=== PATIENT | female | born 2005 | race Two or more races ===

== ENCOUNTER 2025-05-24 01:28 | Emergency (ER) | payer OTHER ==
[~2025-05-24] VITALS: Ht 152.4 cm; Wt 55.5 kg
[2025-05-24 01:30] VITALS: BP 115/76; PULSE 67; RESP 16; TEMP 98.1; O2SAT 100
[2025-05-24 02:23] LABS: Hematocrit 40.3 % (36.0-46.0); Hemoglobin 13.5 g/dL (12.2-16.2); Mean Corpuscular Hemoglobin 30.5 pg (28.0-32.0); Mean Corpuscular Volume 91.0 fL (80.0-100.0); Nucleated Red Blood Cells % 0.1 %
[2025-05-24 02:30] LABS: Chloride 103 mmol/L (98-107); Potassium 4.2 mmol/L (3.5-5.1); Sodium 138 mmol/L (136-145)
[2025-05-24 02:31] LABS: Anion Gap 9 (5-15); Carbon Dioxide 26 mmol/L (20-31)
[2025-05-24 02:32] LABS: Calcium 9.8 mg/dL (8.7-10.4)
[2025-05-24 02:36] LABS: BUN/Creatinine Ratio 12.9 (10.0-20.0); Blood Urea Nitrogen 9 mg/dL (9-23)
[2025-05-24 02:37] LABS: Glucose 112 mg/dL (74-106)
[2025-05-24 02:38] LABS: Urine Protein, UAD TRACE (Negative)
--- NOTE | 2025-05-24 03:11 | ED.PDOC ---
History of Present Illness HPI Comments 20-year-old female who presents to the emergency department with epigastric, cramping abdominal pain that started at 5:00 p.m.. Pain radiates to the mid back. She has associated chills, shortness of breath, nausea, vomiting. She denies fever, URI symptoms, chest pain, blood in the stool or vomit, diarrhea or constipation, UTI symptoms, vaginal symptoms. Patient reports she is . Last menstrual period was 04/20/2025. She took a home test yesterday which was positive. Patient is G-tube P 1. No complications in previous pregnancies. She is currently only taking vitamins. She denies any significant past medical history, surgical history or allergic reactions to medications. 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 Review of systems: As stated in HPI PHYSICAL EXAM: General: Awake, alert and oriented. No acute distress. Skin: Skin in warm, dry and intact. Appropriate color for ethnicity. HEENT: The head is normocephalic and atraumatic. Conjunctivae are clear without exudates or hemorrhage. Sclera is non-icteric. Eyelids are normal in appearance without swelling or lesions. Oral mucosa is pink and moist Neck: The neck is supple with normal range of motion. No JVD. Cardiac: Heart rate and rhythm are normal. No murmurs, gallops, or rubs are auscultated. Respiratory: No signs of respiratory distress. Lung sounds are clear in all lobes bilaterally without rales, rhonchi, or wheezes. Abdominal: Abdomen is soft, + epigastric tenderness with mild distention. No guarding or rigidity. Bowel sounds are present and normoactive in all four quadrants. No CVA tenderness. Extremities: Upper and lower extremities are atraumatic in appearance without deformity or edema. Neurological: The patient is awake, alert and oriented to person, place, and time with normal speech. Speech is clear. There is no facial asymmetry. Normal gait. Psychiatric: Appropriate mood and affect. Good judgement and insight. Chief Complaint: Abdominal Pain Time Seen by MD: 01:40 Allergies: Coded Allergies: NO KNOWN ALLERGIES (Unverified , 05/24/25) Mode of Arrival: Ambulatory Constitutional: reports: others EENTM: reports: others Respiratory: reports: others Cardiovascular: reports: others Gastrointestinal: reports: others Genitourinary: reports: others Neurological: reports: others Integumetry: reports: others Allergic/Immunocompromised: reports: others Hematologic/Lymphatic: reports: others Endocrine: reports: others Psychiatric: reports: others Unable to Obtain due to: Other Physical Exam General Appearance: Other HEENT: Other Neck: Other Respiratory: Other Cardiovascular: Other Breast Exam: Other Gastrointestinal: Other Genitalia: Other Pelvic: Other Rectal: Deferred Extremities: Other Neurologic: Other Cerebellar Function: Other Reflexes: Other Skin: Other Lymphatic: Other Was a procedure done? Was a procedure done?: No Differential Dx Considerations may include: Differential diagnoses considered include: Abdominal aortic aneurysm, ID, esophageal rupture, intestinal obstruction, mesenteric ischemia, perforated viscus or solid organ rupture, CHF with hepatomegaly, pneumonia, abscess, a ppendicitis, biliary disease, diverticulitis, gastritis, gastroenteritis, hepatitis, hernia, inflammatory bowel disease, pancreatitis, peptic ulcer disease, urinary tract infection, ureteral colic, constipation, GERD, irritable syndrome, abdominal wall pain, nonspecific abdominal pain, herpes zoster, nephrolithiasis. Also ruptured ectopic , ovarian torsion/cyst, tubo-ovarian abscess, PID, endometriosis, mittleschmerz. X-Ray, Labs, Meds, VS Vital Signs Date Time Temp Pulse Resp B/P (MAP) Pulse Ox O2 Delivery O2 Flow Rate FiO2 05/24/25 01:30 98.1 67 16 115/76 100 98.1 Lab Test 05/24/25 02:21 05/24/25 02:11 05/24/25 02:00 Range/Units Total Bilirubin 0.5 0.2-1.0 mg/dL Aspartate Amino Transferase (AST) 19 13-40 U/L Alanine Aminotransferase (ALT) 19 7-40 U/L Alkaline Phosphatase 81 46-116 U/L Lipase 36 12-53 U/L Beta HCG, Quantitative 2889.5 H 1.5-4.2 mIU/mL White Blood Count 8.3 4.4-10.8 10^3/uL Red Blood Count 4.43 4.0-5.20 10^6/uL Hemoglobin 13.5 12.2-16.2 g/dL Hematocrit 40.3 36.0-46.0 % Mean Corpuscular Volume 91.0 80.0-100.0 fL Mean Corpuscular Hemoglobin 30.5 28.0-32.0 pg Mean Corpuscular Hemoglobin Concent 33.5 32.0-36.0 g/dL Red Cell Distribution Width 13.7 11.8-14.3 % Platelet Count 283 140-450 10^3/uL Mean Platelet Volume 9.0 6.9-10.8 fL Neutrophils (%) (Auto) 73.9 37.0-80.0 % Lymphocytes (%) (Auto) 18.4 10.0-50.0 % Monocytes (%) (Auto) 6.3 0.0-12.0 % Eosinophils (%) (Auto) 1.0 0.0-7.0 % Basophils (%) (Auto) 0.4 0.0-2.0 % Neutrophils # (Auto) 6.2 1.6-8.6 10 ^3/uL Lymphocytes # (Auto) 1.5 0.4-5.4 10 ^3/uL Monocytes # (Auto) 0.5 0-1.3 10 ^3/uL Eosinophils # (Auto) 0.1 0-0.8 10 ^3/uL Basophils # (Auto) 0 0-0.2 10 ^3/uL Nucleated Red Blood Cells 0.1 % Sodium Level 138 136-145 mmol/L Potassium Level 4.2 3.5-5.1 mmol/L Chloride Level 103 98-107 mmol/L Carbon Dioxide Level 26 20-31 mmol/L Anion Gap 9 5-15 Blood Urea Nitrogen 9 9-23 mg/dL Creatinine 0.70 0.550-1.02 mg/dL Glomerular Filtration Rate Calc 125 >90 mL/min BUN/Creatinine Ratio 12.9 10.0-20.0 Serum Glucose 112 H 74-106 mg/dL Calcium Level 9.8 8.7-10.4 mg/dL Urine Color Yellow Yellow Urine Clarity Turbid H Clear Urine pH 6.5 5.0-9.0 Urine Specific [place] 1.036 H 1.001-1.035 Urine Protein Trace H Negative Urine Ketones Trace Negative Urine Blood Negative Negative /uL Urine Nitrite Negative Negative Urine Bilirubin Negative Negative Urine Urobilinogen Normal Negative mg/dL Urine Leukocyte Esterase 2+ Negative /uL Urine RBC 6 0 - 4 /hpf Urine Microscopic WBC 6 H 0-5 /HPF Urine Squamous Epithelial Cells Mod <5 /hpf Urine Bacteria None seen None Seen /hpf Urine Mucus Few None Seen Urine Glucose Normal Normal mg/dL Urine Test Positive Negative Current Medications Medications (Trade) Dose Ordered Sig/Jessica Route Start Time Stop Time Status Last Admin Acetaminophen (Tylenol Tablet Or Capsule) 1,000 mg ONCE ONCE PO 05/24/25 03:15 05/24/25 03:16 DC 05/24/25 03:29 Ondansetron HCl (Zofran Po) 4 mg ONCE ONCE PO 05/24/25 03:15 05/24/25 03:16 DC 05/24/25 03:29 Time of 1ST Reevaluation: 22:09 Reevaluation 1ST: Unchanged Patient Education/Counseling: Need For Follow Up Family Education/Counseling: No Family Present SEPSIS Sepsis Screen Date sepsis recognized/suspect: May 24, 2025 Time Sepsis recognized/suspect: 013 Recent Procedure: No On Antibiotic Therapy: No Respiratory Rate >20: No Heart Rate >90: No Temp<36 C (96.8 F) or >38.3 C: No SBP <90 or MAP <65 mmHG: No New Acute Mental Status Change: No Is the patient on CPAP, BIPAP,: No Physician Orders Ob Ultrasound Comp Less 14wks (05/24/25 02:05) Abdomen Limited (05/24/25 02:05) Ob Trans Vaginal Us (05/24/25 02:44) Vital Signs Date Time Temp Pulse Resp B/P (MAP) Pulse Ox O2 Delivery O2 Flow Rate FiO2 05/24/25 01:30 98.1 67 16 115/76 100 98.1 Laboratory Tests Test 05/24/25 02:11 White Blood Count 8.3 10^3/uL (4.4-10.8) Departure 1 Departure Time of Disposition: 05:51 Impression: Primary Impression: Eloped from emergency department Disposition: 07 LEFT AWOL/ELOPED Condition: Other Comments Patient eloped from the emergency department prior to discussing test results and follow up plan. Critical Care Note Critical Care Time?: No Stability Stability form required: No Heart Score Heart Score: Heart Score Response (Comments) Value History N/A 0 EKG N/A 0 Age N/A 0 Risk Factors N/A 0 Troponin N/A 0 Total 0 LION CARTER MD May 24, 2025 03:11
[2025-05-24] MEDS: ONDANSETRON ODT 4 MG TAB PO ONE (03:29)
[2025-05-24] MEDS: ACETAMINOPHEN 500 MG TAB or CAP PO ONE (03:29)
--- NOTE | 2025-05-24 03:38 | DVH ---
INDICATION: RUQ/EPIGASTRIC PAIN TECHNIQUE: Multiple real-time sonographic images were obtained of the right upper quadrant. COMPARISON: None FINDINGS: Hepatic echogenicity is normal. The liver measures 17 cm. The common duct measures 4 mm. The gallbladder is without evidence of stone or sludge. Wall thickness measures 2.7 mm. The right kidney measures 11.6 cm. No visualized hydronephrosis, stone, or lesion. The pancreas is not well visualized due to overlying bowel gas. No visualized ascites. IMPRESSION: 1. Unremarkable right upper quadrant ultrasound.
--- NOTE | 2025-05-24 04:13 | DVH ---
OB ULTRASOUND <14 WEEKS: HISTORY: Vaginal Bleeding during TECHNIQUE: Multiple real-time grayscale sonographic images of the pelvis with duplex Doppler color flow, spectral and M-mode analysis. COMPARISON: None FINDINGS: The uterus measures 7.2 x 5.4 x 5.6 cm Right ovary measures 3.2 x 2.3 x 3.8 cm with normal Doppler color flow. Probable corpus luteum. Left ovary measures 3.4 x 1.4 x 2.3 cm with normal Doppler color flow. Intrauterine gestational sac at the fundus. No visualized pole or yolk sac. Mean sac diameter measures 3 mm. IMPRESSION: Intrauterine cavitary fluid without visualized yolk sac or pole, likely representing an early gestational sac compatible with normal early . Follow-up ultrasound recommended in at least 2 weeks for definitive characterization of gestational viability.
[2025-05-24 07:30] LABS: Alanine Aminotransferase 19.0 U/L (7-40); Alkaline Phosphatase 81.0 U/L (46-116); Bilirubin, Total 0.5 mg/dL (0.2-1.0)
[2025-05-24 07:50] LABS: Lipase 36.0 U/L (12-53)
== END 2025-05-24 05:50 | disposition left against medical advice (07) ==
LOC: ER 01:28
DX: O20.0 Threatened abortion (principal); O26.891 Other specified pregnancy related conditions, first trimester; Z3A.01 Less than 8 weeks gestation of pregnancy
CPT/HCPCS: 36415; 76705; 76801; 76817; 80048; 81001; 81025; 82247; 83690; 84075; 84450; 84460; 84702; 85025; 99284; Q0162